=== PATIENT | male | born 1975 | race Caucasian/White ===

== ENCOUNTER 2017-07-15 18:25 | Emergency (ER) | payer OTHER ==
[~2017-07-15 18:25] MED LIST: ALBU1AER INH
[2017-07-15 18:35] VITALS: BP 138/73; PULSE 67; RESP 18; TEMP 98.5; O2SAT 100
--- NOTE | 2017-07-15 18:44 | PD ---
HPI Chief Complaint: Chest Pain Time Seen by Provider: 18:43 Travel History International Travel<30 days: No Contact w/Intl Traveler<30days: No Traveled to known affect area: No History of Present Illness HPI 42-year-old male came to the emergency room complaining of headache. Patient says he has had this headache for 2 days and is just not getting better. No history of fever or chills. Patient has some other additional complaints like chest pain as well. However he tells that he has had this chest pain for a while. He just found a primary care physician who has referred him to see a epic radiant analyst will do an echocardiogram on as well as a GI specialist who will do an endoscopy. Currently today his main complaint is the headache. No history of nausea vomiting. Patient used to be an IV drug abuser but denies using any drugs now. Vital signs were relatively stable. Headache is generalized and no aggravating or relieving factors identified. No neck stiffness. This chest pain is substernal and epigastric. No aggravating or relieving factors identified. This location and intensity is no different than his usual pain. [facility] Past Medical History Narrative Medical List of his past medical, surgical, social and family history is reviewed from the nursing note. Blood Disorders: No Anxiety: Yes Depression: Yes Cancer: No Cardiovascular Problems: Yes (Endocarditis ) Cerebrovascular Accident: Yes Diminished Hearing: No Endocrine: No Genitourinary: No Hepatitis: Yes (HEP C) Immune Disorder: No Musculoskeletal: Yes Neurologic: No Reproductive: No Respiratory: Yes (CHILDHOOD ASTHMA) Immunizations Current: Yes Influenza Vaccination: No Past Surgical History Genitourinary Surgery: Yes (TESTICLE) Oral Surgery: Yes (ALL TEETH REMOVED AND DENTURES APPLIED) Other Surgery: Yes (hernia repair) Social History Alcohol Use: No Tobacco Use: Yes (1PPD) Substance Use: No (H/O IVDA CLEAN SINCE 2014) Allergies-Medications (Allergen,Severity, Reaction): Coded Allergies: bee venom protein (honey bee) (Unverified Allergy, Severe, ANAPHALAXIS, ) Uncoded Allergies: Narcotics (Adverse Reaction, Mild, 06/05/15) PT IS IN RECOVERY. Comments List of his allergies reviewed from the nursing note. Reported Meds & Prescriptions Reported Meds & Active Scripts Active Fioricet (Nshwbqctay-Hkzqgwwqnlacj-Fjmbyevh) 50-300-40 Mg Cap 1 Cap PO Q4H PRN Narrative Medication List of his home medications reviewed from the nursing note. Review of Systems Except as stated in HPI: all other systems reviewed are Neg Cardiovascular: Positive: Chest Pain or Discomfort Neurologic: Positive: Headache Physical Exam Narrative GENERAL: Awake, alert, moderate distress, anxious SKIN: Focused skin assessment warm/dry. HEAD: Atraumatic. Normocephalic. EYES: Pupils equal and round. No scleral icterus. No injection or drainage. ENT: No nasal bleeding or discharge. Mucous membranes pink and moist. NECK: Trachea midline. No JVD. Neck is supple CARDIOVASCULAR: Regular rate and rhythm. No murmur appreciated. RESPIRATORY: No accessory muscle use. Clear to auscultation. Breath sounds equal bilaterally. GASTROINTESTINAL: Abdomen soft, non-tender, nondistended. Hepatic and splenic margins not palpable. MUSCULOSKELETAL: No obvious deformities. No clubbing. No cyanosis. No edema. NEUROLOGICAL: Awake and alert. No obvious cranial nerve deficits. Motor grossly within normal limits. Normal speech. PSYCHIATRIC: Appropriate mood and affect; insight and judgment normal. Data Data Last Documented VS Orders Orders Complete Blood Count With Diff (07/15/17 19:03) Basic Metabolic Panel (Bmp) (07/15/17 19:03) Ct Brain W/O Iv Contrast(Rout) (07/15/17 19:03) Ecg Monitoring (07/15/17 19:03) Iv Access Insert/Monitor (07/15/17 19:03) Oximetry (07/15/17 19:03) Sodium Chloride 0.9% Flush (Ns Flush) (07/15/17 19:15) Prochlorperazine Inj (Compazine Inj) (07/15/17 19:15) Sodium Chlor 0.9% 1000 Ml Inj (Ns 1000 M (07/15/17 19:03) Electrocardiogram (07/15/17 18:30) Ed Discharge Order (07/15/17 21:34) Labs Laboratory Tests Test 07/15/17 20:00 White Blood Count 8.1 TH/MM3 Red Blood Count 5.04 MIL/MM3 Hemoglobin 14.8 GM/DL Hematocrit 42.8 % Mean Corpuscular Volume 84.8 FL Mean Corpuscular Hemoglobin 29.4 PG Mean Corpuscular Hemoglobin Concent 34.6 % Red Cell Distribution Width 19.0 % Platelet Count 192 TH/MM3 Mean Platelet Volume 8.4 FL Neutrophils (%) (Auto) 51.4 % Lymphocytes (%) (Auto) 36.1 % Monocytes (%) (Auto) 9.8 % Eosinophils (%) (Auto) 1.8 % Basophils (%) (Auto) 0.9 % Neutrophils # (Auto) 4.2 TH/MM3 Lymphocytes # (Auto) 2.9 TH/MM3 Monocytes # (Auto) 0.8 TH/MM3 Eosinophils # (Auto) 0.1 TH/MM3 Basophils # (Auto) 0.1 TH/MM3 CBC Comment DIFF FINAL Differential Comment Blood Urea Nitrogen 21 MG/DL Creatinine 0.95 MG/DL Random Glucose 120 MG/DL Calcium Level 8.4 MG/DL Sodium Level 138 MEQ/L Potassium Level 3.9 MEQ/L Chloride Level 109 MEQ/L Carbon Dioxide Level 22.0 MEQ/L Anion Gap 7 MEQ/L Estimat Glomerular Filtration Rate 87 ML/MIN MDM Medical Decision Making Medical Screen Exam Complete: Yes Emergency Medical Condition: Yes Medical Record Reviewed: Yes Interpretation(s) Twelve-lead EKG was reviewed by me. Normal sinus rhythm, left axis deviation, nonspecific ST-T wave changes. Heart rate of 67 bpm. Differential Diagnosis Headache NOS, status post migrainous Narrative Course 8:26 PM blood test results are back. Patient has some dehydration. Awaiting for the head CT report. Patient was given IV fluid bolus and IV Compazine for his headache. I'll reassess him. 9:[address] is negative. Patient will be discharged home. Procedures EKG Prior to Arrival: No Diagnosis Primary Impression: Headache Qualified Codes: R51 - Headache Referrals: Primary Care Physician Additional Instructions: Take the medication as per the prescription direction. Return to the ER if condition worsens or any other new concerns. Otherwise follow-up with your primary care. Do not drink alcohol or take any stimulants like nicotine, cheese , chocolate since they will make an headache worse. Do not watch television/ computer screen or Smart phone since that will make her headache worse. Your eyes and brain needs rest for at least next 24-48 hrs. Med/Other Pt SpecificInfo: Prescription(s) given Scripts Gwkkgpmymd-Rnbcwfgmufhyl-Vjbuiyli (Fioricet) 50-300-40 Mg Cap 1 CAP PO Q4H Y for HEADACHE, #12 CAP 0 Refills Prov: Shahram Fitzgerald MD 07/15/17 Disposition: 01 DISCHARGE HOME Condition: Stable Shahram Fitzgerald MD Jul 15, 2017 18:44
[2017-07-15] MEDS ORDERED: SODIUM CHLOR 0.9% 1000 ML INJ 1,000 ML IV ONE (19:03)
[2017-07-15] MEDS ORDERED: SODIUM CHLORIDE 0.9% FLUSH 10 ML FLUSH IVF PRN (19:15)
[2017-07-15] MEDS ORDERED: PROCHLORPERAZINE INJ 10 MG/2 ML VIAL IVP ONE (19:15)
[2017-07-15 20:10] LABS: AUTOMATED NEUTROPHIL # 4.2 TH/MM3 (1.8-7.7); BASOPHIL # 0.1 TH/MM3 (0-0.2); BASOPHIL % 0.9 % (0.0-2.0); EOSINOPHIL # 0.1 TH/MM3 (0-0.4); EOSINOPHIL % 1.8 % (0.0-4.0); HEMATOCRIT 42.8 % (39.0-51.0); HEMOGLOBIN 14.8 GM/DL (13.0-17.0); LYMPH % 36.1 % (9.0-44.0); LYMPHOCYTE # 2.9 TH/MM3 (1.0-4.8); MEAN CELL VOLUME 84.8 FL (80.0-100.0); MEAN CORPUSCULAR HEMOGLOBIN 29.4 PG (27.0-34.0); MEAN CORPUSCULAR HGB CONC 34.6 % (32.0-36.0); MEAN PLATELET VOLUME 8.4 FL (7.0-11.0); MONO % 9.8 % (0.0-8.0); MONOCYTE # 0.8 TH/MM3 (0-0.9); NEUT % 51.4 % (16.0-70.0); PLATELET COUNT 192 TH/MM3 (150-450); RED BLOOD COUNT 5.04 MIL/MM3 (4.50-5.90); WHITE BLOOD COUNT 8.1 TH/MM3 (4.0-11.0)
[2017-07-15 20:18] LABS: CALCIUM 8.4 MG/DL (8.5-10.1)
[2017-07-15 20:22] LABS: CREATININE 0.95 MG/DL (0.60-1.30)
[2017-07-15 21:01] VITALS: RESP 16; O2SAT 97
--- NOTE | 2017-07-15 21:32 | RADRPT ---
EXAM DATE/TIME: 07/15/2017 20:03 [place] COMPARISON: No previous studies available for comparison. INDICATIONS : Cephalgia. RADIATION DOSE: 61.55 CTDIvol (mGy) MEDICAL HISTORY : Cerebrovascular disease. Hepatitis C. Cardiovascular disease SURGICAL HISTORY : Hernia repair. ENCOUNTER: Initial ACUITY: 1 day PAIN SCALE: 7/10 LOCATION: cranial TECHNIQUE: Multiple contiguous axial images were obtained of the head. Using automated exposure control and adj ustment of the mA and/or kV according to patient size, radiation dose was kept as low as reasonably a chievable to obtain optimal diagnostic quality images. DICOM format image data is available electro nically for review and comparison. FINDINGS: CEREBRUM: The ventricles are normal for age. No evidence of midline shift, mass lesion, hemorrhage or acute in farction. No extra-axial fluid collections are seen. POSTERIOR FOSSA: The cerebellum and brainstem are intact. The 4th ventricle is midline. The cerebellopontine angle i s unremarkable. EXTRACRANIAL: The visualized portion of the orbits is intact. SKULL: The calvaria is intact. No evidence of skull fracture. CONCLUSION: Normal examination. Roberto Carlos Torres MD on July 15, 2017 at 21:30 Board Certified Radiologist. This report was verified electronically.
[2017-07-15] MEDS ORDERED: BUTA1CAP PO (21:35)
[2017-07-15 21:44] VITALS: BP 129/70; TEMP 98.4
--- NOTE | 2017-07-16 18:51 | EKG ---
Date Performed: 07/15/2017 Time Performed: 18:30:58 PTAGE: 42 years EKG: Sinus rhythm BORDERLINE LEFT AXIS DEVIATION BORDERLINE ECG INTERPRETATION BASED ON A DEFAULT AGE OF 41 YEARS Sinc e the prior tracing, there has been no significant change NO PREVIOUS TRACING DOCTOR: Wendy Whittington Interpretating Date/Time 07/16/2017 18:47:04
== END 2017-07-15 21:55 | disposition home or self-care (01) ==
LOC: PHED 18:25
DX: R51 Headache (principal); R07.9 Chest pain, unspecified; R94.31 Abnormal electrocardiogram [ECG] [EKG]; F41.9 Anxiety disorder, unspecified; F32.9 Major depressive disorder, single episode, unspecified; B19.20 Unspecified viral hepatitis C without hepatic coma; F17.200 Nicotine dependence, unspecified, uncomplicated; Z86.73 Personal history of transient ischemic attack (TIA), and cerebral infarction without residual deficits
CPT/HCPCS: 70450; 80048; 85025; 93005; 96361; 96374; 99285; J0780; J7030